=== PATIENT | female | born 1960 | race Caucasian/White ===

== ENCOUNTER 2017-05-13 16:21 | Emergency (ER) | payer BC, OTHER ==
[~2017-05-13] VITALS: Ht 157.5 cm; Wt 60.1 kg
[~2017-05-13 16:21] MED LIST: DLD2 PO; DPPI400 INJ
[2017-05-13 16:28] VITALS: TEMP 36.7; Ht 157.5 cm; Wt 60.1 kg
[2017-05-13] MEDS ORDERED: HYDROmorphone INJ 0.5 MG/0.5 ML SYR IV STA ×2 (16:41→18:55)
[2017-05-13] MEDS ORDERED: SODIUM CHLORIDE 0.9% 1000ML 1,000 ML IV STA (16:41)
[2017-05-13] MEDS ORDERED: LIDODERM (LIDOCAINE) PATCH 5% TD STA (16:41)
[2017-05-13] MEDS ORDERED: KETOROLAC TROMETHAMINE 30 MG/ML VIAL IV STA (16:41)
[2017-05-13] MEDS ORDERED: ONDANSETRON INJ 2 MG/ML 2 ML VIAL IV STA (16:43)
[2017-05-13 17:12] LABS: BASO % 0.2 %; BASO ABS # 0.03 K/uL (0-0.2); COMPLETE YES; EOS % 0.5 %; HEMATOCRIT 42.7 % (37-47); IG% 0.3 %; LYMPH % 12.1 %; LYMPH ABS # 2.05 K/uL (1.2-3.4); MEAN CELL VOLUME 91.6 fL (80-100); MEAN CORPUSCULAR HEMOGLOBIN 31.3 pg (25-34); MEAN CORPUSCULAR HGB CONC 34.2 g/dl (32-36); MEAN PLATELET VOLUME 10.5 fL (7.4-10.4); MONO % 6.9 %; PLATELET COUNT 246 K/uL (130-400); RED BLOOD COUNT 4.66 M/uL (4.2-5.4)
--- NOTE | 2017-05-13 17:12 | EMERGENCY ROOM VISIT NOTE ---
History Report prepared by Scribe: Loraine Leos Under the Supervision of: Dr. Keny Wagoner M.D. First contact with patient: 16:35 Chief Complaint: ARM PAIN Stated Complaint: LF ARM/HAND/WRIST PAIN History of Present Illness The patient is a 56 year old female who presents to the Emergency Room with complaints of persistent left arm pain for the past few days. She rates her pain as a 10/10 in severity. The pain radiates from her finger tips to her upper arm. She reports a few days ago, she woke up from a nap with the pain and it never resolved. She denies any recent injuries or trauma. She has experienced no recent fevers or illnesses. 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 A total of 10 systems reviewed and were otherwise negative. Past Medical & Surgical Surgical Problems: (1) Right shoulder pain Social History Smoking Status: Current Every Day Smoker Alcohol Use: occasionally Drug Use: none Marital Status: Housing Status: lives with family Occupation Status: employed Current/Historical Medications Scheduled Acetaminophen (Tylenol), 1,000 MG PO PRN UD Acetaminophen W/ Codeine (Tylenol W/Codeine #3), 2 TAB PO Q6 Amoxicillin & Pot Clavulanate (Augmentin 875-125 mg), 1 TAB PO BID Lidocaine (Lidoderm Patch 5%), 1 PATCH TD DIRECTED Medroxyprogesterone Acetate (Depo-Provera), 400 MG PO UD Allergies Coded Allergies: Morphine (Verified Allergy, Severe, ITCHING, 05/13/17) Adhesives (Verified Allergy, Unknown, "SENSITIVITY TO BANDAIDS", 10/11/07) Physical Exam Vital Signs Date Time Temp Pulse Resp B/P (MAP) Pulse Ox O2 Delivery O2 Flow Rate FiO2 05/13/17 19:28 75 18 128/81 100 05/13/17 18:08 73 18 134/84 96 Room Air 05/13/17 16:28 36.7 94 22 124/88 99 Room Air Physical Exam GENERAL: Patient is a healthy-appearing well-nourished 56 year old female. HEAD: Normocephalic atraumatic EYES: Ocular movements intact pupils equal and react to light OROPHARYNX mucous membranes are moist no exudates present no erythema or edema present NECK: Supple no nuchal rigidity CHEST: Good equal expansion LUNGS: Clear and equal to auscultation CARDIAC: Normal S1 and S2 ABDOMEN: Soft nontender no guarding BACK: No CVA tenderness EXTREMITIES: No pain upon palpation normal muscle strength in all groups no clubbing cyanosis or edema NEURO: Patient is following commands is answering questions appropriately. Alert and oriented x3 Cranial Nerves 2-12 grossly intact Medical Decision & Procedures ER Provider Diagnostic Interpretation: Radiology results as stated below per my review and radiologist interpretation: L FOREARM 2 VIEWS ROUTINE CLINICAL HISTORY: Pt c/o left forearm pain pain COMPARISON: None. DISCUSSION: The bones and joint spaces appear intact. There is no evidence of fracture, dislocation or bony disease. There is no evidence for soft tissue swelling. IMPRESSION: Negative study. The above report was generated using voice recognition software. It may contain grammatical, syntax or spelling errors. Electronically signed by: Fox Dhillon M.D. 05/13/2017 5:17 PM L VENOUS DOPPLER UPR EXT UNIL CLINICAL HISTORY: 56 years-old Female presenting with Pt c/o LUE pain. TECHNIQUE: Real-time grayscale and color and spectral Doppler ultrasound imaging of the veins of the left upper extremity was performed. Compression and augmentation were also utilized. COMPARISON: None. FINDINGS: Left: Internal jugular vein: Patent. Subclavian vein: Patent. Cephalic vein: Patent. Axillary vein: Patent. Brachial vein: Patent. Basilic vein: Patent. Radial vein: Patent. Ulnar vein: Patent. Other: None. IMPRESSION: No evidence of deep venous thrombosis. Electronically signed by: Sanju Mitchell M.D. 05/13/2017 6:08 PM Laboratory Results 05/13/17 16:50 Red Blood Count 4.66, Mean Corpuscular Volume 91.6, Mean Corpuscular Hemoglobin 31.3, Mean Corpuscular Hemoglobin Concent 34.2, Mean Platelet Volume 10.5, Neutrophils (%) (Auto) 80.0, Lymphocytes (%) (Auto) 12.1, Monocytes (%) (Auto) 6.9, Eosinophils (%) (Auto) 0.5, Basophils (%) (Auto) 0.2, Neutrophils # (Auto) 13.51, Lymphocytes # (Auto) 2.05, Monocytes # (Auto) 1.17, Eosinophils # (Auto) 0.09, Basophils # (Auto) 0.03 05/13/17 16:50 Test 05/13/17 16:50 White Blood Count 16.90 K/uL (4.8-10.8) Red Blood Count 4.66 M/uL (4.2-5.4) Hemoglobin 14.6 g/dL (12.0-16.0) Hematocrit 42.7 % (37-47) Mean Corpuscular Volume 91.6 fL (80-100) Mean Corpuscular Hemoglobin 31.3 pg (25-34) Mean Corpuscular Hemoglobin Concent 34.2 g/dl (32-36) Platelet Count 246 K/uL (130-400) Mean Platelet Volume 10.5 fL (7.4-10.4) Neutrophils (%) (Auto) 80.0 % Lymphocytes (%) (Auto) 12.1 % Monocytes (%) (Auto) 6.9 % Eosinophils (%) (Auto) 0.5 % Basophils (%) (Auto) 0.2 % Neutrophils # (Auto) 13.51 K/uL (1.4-6.5) Lymphocytes # (Auto) 2.05 K/uL (1.2-3.4) Monocytes # (Auto) 1.17 K/uL (0.11-0.59) Eosinophils # (Auto) 0.09 K/uL (0-0.5) Basophils # (Auto) 0.03 K/uL (0-0.2) RDW Standard Deviation 42.1 fL (36.4-46.3) RDW Coefficient of Variation 12.5 % (11.5-14.5) Immature Granulocyte % (Auto) 0.3 % Immature Granulocyte # (Auto) 0.05 K/uL (0.00-0.02) Erythrocyte Sedimentation Rate 12 mm/hr (0-21) Anion Gap 6.0 mmol/L (3-11) Est Creatinine Clear Calc Drug Dose 73.7 ml/min Estimated GFR () 114.4 Estimated GFR (Non- 98.7 BUN/Creatinine Ratio 19.4 (10-20) Uric Acid 3.5 mg/dl (2.6-7.2) Calcium Level 9.4 mg/dl (8.5-10.1) Total Bilirubin 0.4 mg/dl (0.2-1) Direct Bilirubin < 0.1 mg/dl (0-0.2) Aspartate Amino Transf (AST/SGOT) 13 U/L (15-37) Alanine Aminotransferase (ALT/SGPT) 21 U/L (12-78) Alkaline Phosphatase 72 U/L (45-117) C-Reactive Protein < 0.29 mg/dl (0-0.29) Total Protein 7.6 gm/dl (6.4-8.2) Albumin 4.1 gm/dl (3.4-5.0) Thyroid Stimulating Hormone (TSH) 1.700 uIu/ml (0.300-4.500) Lyme Disease IgG Antibody NEG (NEG) Anti-Streptolysin O Antibody Screen NEG IU/ml (<200 IU) Labs reviewed by ED physician. Medications Administered Medications (Trade) Dose Ordered Sig/Jose Route Start Time Stop Time Status Last Admin Dose Admin Sodium Chloride 1,000 ml @ 999 mls/hr Q1H1M STAT IV 05/13/17 16:41 05/13/17 17:41 DC 05/13/17 16:41 999 MLS/HR Ketorolac Tromethamine (Toradol Inj) 30 mg NOW STAT IV 05/13/17 16:41 05/13/17 16:44 DC 05/13/17 16:59 30 MG Lidocaine (Lidoderm Patch 5%) 1 patch NOW STAT TD 05/13/17 16:41 05/13/17 16:44 DC 05/13/17 17:04 1 PATCH Hydromorphone HCl (Dilaudid Inj) 0.5 mg NOW STAT IV 05/13/17 16:41 05/13/17 16:44 DC 05/13/17 17:00 0.5 MG Ondansetron HCl (Zofran Inj) 4 mg NOW STAT IV 05/13/17 16:43 05/13/17 16:46 DC 05/13/17 16:59 4 MG Hydromorphone HCl (Dilaudid Inj) 0.5 mg NOW STAT IV 05/13/17 18:55 05/13/17 18:57 DC 05/13/17 18:55 0.5 MG Amoxicillin/ Clavulanate Potassium (Augmentin Tab) 875 mg ONE ONCE PO 05/13/17 19:00 05/13/17 19:01 DC 05/13/17 19:12 875 MG Acetaminophen/ Codeine Phosphate (TYLENOL W/ CODEINE #3 Home Pack) 1 homepack UD STAT PO 05/13/17 19:06 05/13/17 19:07 DC 05/13/17 19:14 1 HOMEPACK ECG Indication: other (arm pain ) Rate (beats per minute): 85 Rhythm: normal sinus Findings: no acute ischemic change, no ectopy ED Course 1635: Past medical records reviewed. The patient was evaluated in room B7. A complete history and physical examination was performed. 1641: Dilaudid 0.5 mg IV, Lidocaine 1 patch TD, Toradol 30 mg IV, NSS 1000 ml @ 999 mls/hr IV. 164: Zofran 4 mg IV. 1855: Dilaudid 0.5 mg IV. 190: Percocet 5/325 mg 1 homepack PO, Augmentin 875 mg PO. 1905: Acetaminophen/Codeine Phosphate, 1 homepack PO. 1909: I reevaluated the patient. She is feeling much better. I discussed her results and discharge instructions and she verbalized complete understanding and agreement. Medical Decision This is a 56-year-old female who presents emergency department complaining of left arm pain. The patient also has a dopplerable pulses. She has no evidence of cellulitis or vascular compromise on physical examination. She also has no evidence of joint infection at the wrist or the elbow. On reexamination I do feel that the patient may be suffering from carpal tunnel disease however she does have an elevation in her white blood count cell count. I will place the patient in a splint and will start her on Augmentin and she does have an elevation in her white blood count cell count and does have a positive Lyme. The line will be reread over the next 48 hours. I stressed the need follow-up with orthopedics to the patient. She'll be placed on Tylenol 3 at home. An IV was established, the patient is given normal saline bolus, Toradol, Dilaudid 2. Repeat examination revealed much improvement the patient's symptoms. Patient was in agreement with the treatment plan. Medication Reconcilliation Current Medication List: was personally reviewed by me Blood Pressure Screening Patient's blood pressure: Normal blood pressure Blood pressure disposition: Did not require urgent referral Impression Primary Impression: Left wrist pain Scribe Attestation The scribe's documentation has been prepared under my direction and personally reviewed by me in its entirety. I confirm that the note above accurately reflects all work, treatment, procedures, and medical decision making performed by me. Departure Information Dispostion Home / Self-Care Prescriptions Lidocaine (Lidoderm Patch 5%) 1 Ea Tdsy 1 PATCH TD DIRECTED, #30 PATCH Prov: Keny Wagoner MD 05/13/17 Amoxicillin & Pot Clavulanate (Augmentin 875-125 mg) 1 Tab Tab 1 TAB PO BID, #14 TAB Prov: Keny Wagoner MD 05/13/17 Acetaminophen W/ Codeine (TYLENOL W/CODEINE #3) 1 Tab Tab 2 TAB PO Q6, #14 TAB Prov: Keny Wagoner MD 05/13/17 Referrals No Doctor, Assigned (PCP) Patient Instructions Carpal Tunnel Syndrome, De Quervain Tenosynovitis, [facility] Additional Instructions Follow up with Dr Hernandez's office You received narcotic or benzodiazepene medication while in the emergency room today. This is an addictive medication that may cause drowziness as well as constipation. Do not drive, operate heavy machinery, or drink alcohol under the influence of this medication. Take 600 mg Ibuprofen every 6 hours Take Tylenol#3 for breakthrough pain You have been examined and treated today on an emergency basis only. This is not a substitute for, or an effort to provide, complete comprehensive medical care. It is impossible to recognize and treat all injuries or illnesses in a single emergency department visit. It is therefore important that you follow up closely with your PCP. Call as soon as possible for an appointment. Thank you for your time and consideration. I look forward to speaking with you again soon. Please don't hesitate to call us if you have any questions.
--- NOTE | 2017-05-13 17:19 | DIAGNOSTIC IMAGING REPORT ---
L FOREARM 2 VIEWS ROUTINE CLINICAL HISTORY: Pt c/o left forearm pain pain COMPARISON: None. DISCUSSION: The bones and joint spaces appear intact. There is no evidence of fracture, dislocation or bony disease. There is no evidence for soft tissue swelling. IMPRESSION: Negative study. The above report was generated using voice recognition software. It may contain grammatical, syntax or spelling errors. Electronically signed by: Fox Dhillon M.D. 05/13/2017 5:17 PM Dictated Date/Time: 05/13/2017 5:17 PM
[2017-05-13 17:31] LABS: ALT/SGPT 21 U/L (12-78); AST/SGOT 13 U/L (15-37); BLOOD UREA NITROGEN 13 mg/dl (7-18); BUN/CREATININE RATIO 19.4 (10-20); CALCIUM 9.4 mg/dl (8.5-10.1); CARBON DIOXIDE 24 mmol/L (21-32); CHLORIDE 107 mmol/L (98-107); CREATININE 0.69 mg/dl (0.60-1.20); GLUCOSE 89 mg/dl (70-99); SODIUM 137 mmol/L (136-145); URIC ACID 3.5 mg/dl (2.6-7.2)
[2017-05-13 17:41] LABS: ALKALINE PHOSPHATASE 72 U/L (45-117); C-REACTIVE PROTEIN < 0.29 mg/dl (0-0.29)
--- NOTE | 2017-05-13 18:10 | DIAGNOSTIC IMAGING REPORT ---
L VENOUS DOPPLER UPR EXT UNIL CLINICAL HISTORY: 56 years-old Female presenting with Pt c/o LUE pain. TECHNIQUE: Real-time grayscale and color and spectral Doppler ultrasound imaging of the veins of the left upper extremity was performed. Compression and augmentation were also utilized. COMPARISON: None. FINDINGS: Left: Internal jugular vein: Patent. Subclavian vein: Patent. Cephalic vein: Patent. Axillary vein: Patent. Brachial vein: Patent. Basilic vein: Patent. Radial vein: Patent. Ulnar vein: Patent. Other: None. IMPRESSION: No evidence of deep venous thrombosis. Electronically signed by: Sanju Mitchell M.D. 05/13/2017 6:08 PM Dictated Date/Time: 05/13/2017 5:53 PM
[2017-05-13] MEDS ORDERED: ACET-1256 PO (18:53)
[2017-05-13] MEDS ORDERED: DPPRI400 PO (18:53)
[2017-05-13] MEDS ORDERED: PERCOCET HOME PACK PO ONE (19:00)
[2017-05-13] MEDS ORDERED: AMOXICILLIN/CLAVULANATE TAB 875 MG TAB PO ONE (19:00)
[2017-05-13] MEDS ORDERED: TYLENOL #3 HOME PACK PO STA (19:06)
[2017-05-13] MEDS ORDERED: ACET300T2 PO (19:07)
[2017-05-13] MEDS ORDERED: AMOX875T PO (19:10)
[2017-05-13 19:16] LABS: LYME DISEASE AB IGG NEG (NEG)
[2017-05-13] MEDS ORDERED: NF656 TD (19:16)
[2017-05-13 19:18] LABS: ANTI-STREP O SCR: 5YRS OR > NEG IU/ml (<200 IU)
[2017-05-13 19:25] LABS: LYME DISEASE AB IGM POS (NEG)
[2017-05-13 19:28] VITALS: BP 128/81; PULSE 75; O2SAT 100
[2017-05-19 10:16] LABS: 18KDIGG BAND NONREACTIVE (NONREACTIVE); 23KDIGG BAND REACTIVE (NONREACTIVE); 23KDIGM BAND REACTIVE (NONREACTIVE); 28KDIGG BAND NONREACTIVE (NONREACTIVE); 30KDIGG BAND NONREACTIVE (NONREACTIVE); 39KDIGG BAND NONREACTIVE (NONREACTIVE); 39KDIGM BAND NONREACTIVE (NONREACTIVE); 41KDIGG BAND REACTIVE (NONREACTIVE); 41KDIGM BAND REACTIVE (NONREACTIVE); 45KDIGG BAND NONREACTIVE (NONREACTIVE); 58KDIGG BAND NONREACTIVE (NONREACTIVE); 66KDIGG BAND NONREACTIVE (NONREACTIVE); 93KDIGG BAND NONREACTIVE (NONREACTIVE)
== END 2017-05-13 19:30 | disposition home or self-care (01) ==
LOC: C.EDB 16:22
DX: M25.532 Pain in left wrist (principal); F17.200 Nicotine dependence, unspecified, uncomplicated

== ENCOUNTER 2024-06-17 12:02 | Observation (INO) ==
--- OUTSIDE RECORDS SUMMARY | 2024-06-17 12:09 | External Medical Summary | Summary of Care ---
Author Name Unknown Organization [facility] Address [address] [address] Phone [phone] Care Team Providers Care Steamboat Inspector Name Role Phone Bonnie Fuller PA-C Primary Care Provider Reason for Visit * Reason Onset Date Comments Letter Requests 01/11/2024 Appointment 01/11/2024 Encounter Details Date Type Department Care Team (Late st Contact Info) Description 01/11/2024 Telephone Rheumatology [id number] [place] [address] Geoff Machado MD [address] [place] [address] Letter Requests (/); Appointment Allergies Active Allergy Reactions Criticality Noted Date Comments Adhesive Tape 07/14/2011 Rash Morphine Sulfate Itching 04/09/2010 Sulfasalazine Other (Please comment) Medium 08/05/2020 Trouble breathing documented as of this encounter (statuses as of 01/11/2024) Medications Medication Sig Dispensed Refills Start Date End Date Status Hydroxychloroquine Sulfate 200 MG Oral Tablet (Plaquenil) TAKE 1 AND 1/2 TABLETS BY MOUTH ONCE DAILY AT BEDTIME 135 Tablet 3 10/27/2023 Active Naproxen 500 MG Oral Tablet (Naprosyn)Indicatio ns:Chronic left shoulder pain Take 1 Tablet by mouth 2 times a day as needed for Pain. With food 40 Tablet 1 12/19/2023 Active methylPREDNISolone 4 MG Oral Tablet Therapy Pack (Medrol Dosepack) follow package directions 21 Tablet 01/11/2024 Active documented as of this encounter (statuses as of 01/11/2024) Active Problems Problem Noted Date Diagnosed Date Pulmonary emphysema 08/24/2022 Atherosclerosis of [place] ronary artery of [place] heart without angina pectoris 05/06/2022 Gastroesophageal reflux disease 07/08/2021 Wears dentures 10/23/2020 Encounter for therapeutic drug monitoring 2019 Rheumatoid arthritis involvi ng multiple sites with positive rheumatoid factor 12/19/2019 Tobacco use disorder 10/16/2012 Diaphragmatic hernia 04/30/2010 documented as of this encounter (statuses as of 01/11/2024) Resolved Problems Problem Noted Date Diagnosed Date Resolved Date Pulmonary emphysema 08/24/2022 12/19/19 24 documented as of this encounter (statuses as of 01/11/2024) Immunizations Name Administration Dates Next Due COVID-19 mRNA, LNP-s, No Pre serve, 2-Dose Series ([employer]) 06/15/2021,09/16/2020,08/26/2020 Pneumococcal Polysaccharide PPV23 (Pneumovax) 07/08/2021 Seasonal Influenza, PF, 6 M & above, IM , (FluLaval or Fluzone) 05/27/2022,05/25/2021,05/22/2019 Seasonal Influenza, Quad, Na yancy (Flumist) 05/22/2018,06/10/2016 Seasonal Influenza, Quadrivalent, ID 05/26/2020 Seasonal Influenza, Quadriva lent,with Preserve, 3 yr & above, IM 06/01/2017 Seasonal Influenza, Split, I IV3, With Preserve, Inj 06/05/2015,06/05/2014,06/06/2013,06/22,05/14/2011 TDAP (age 10 and older)(Boostrix) 10/12/2014 TDAP (age 11 and older)(Adacel) 04/10/2014(Defer red: Patient Refused) documented as of this encounter Social History Tobacco Use Types Packs/Day Years Used Date Smoking Tobacco: Every Day Cigarettes 1 30 Smokeless Tobacco: Never Alcohol Use Standard Drinks/Week Comments Yes 0 (1 standard drink = 0.6 oz pur e alcohol) rare PHQ-2 Answer Date Recorded PHQ Adult Total Score 17 05/06/2022 Sex and Gender Information Value Date Recorded Sex Assigned at Female 10/23/2020 7:22 AM EST Gender Identity Female 10/23/2020 7:22 AM EST Sexual Orientation Straight 10/23/2020 7: 22 AM EST Job Start Date Occupation Industry Not on file Not on file Not on file documented as of this encounter Miscellaneous Notes * Telephone Encounter - Geoff Machado MD - 01/11/2024 4:32 PM EDT I called and left a message to call back. When patient calls back let her know I sent in a steroid Dosepak for her to take for her flare of her RA * Telephone Encounter - Janina Sheth OSA - 01/11/2024 9:14 AM EDT Nash - Patient Related Communication Reason for Call: appt Flare, new symptom, acute problem (Physician-[facility], Nurse Pool-[facility]): swollen right hand/thumb w/limited movement LUNA Bass Nash - Patient Related Communication Reason for Call: letter request Pt requesting a general letter stating that she has Rheumatoid Arthritis and currently under the care of Dr Moseley. Pt requesting letter be sent to home address. LUNA Bass documented in this encounter Plan of Treatment Health Maintenance Due Date Last Done Comments DISCUSS TOBACCO CESSATION (REFER TO SMARTSET #6456) 1962 Alpha-1 Antitrypsin 1980 O2 ASSESSMENT COMPLETED IN PAST YEAR FOR COPD 1980 Zoster Vaccines (1 of 2) 1981 HPV/Co-Test 1992 Colonoscopy 2007 Sigmoidoscopy 2007 Mammogram 11/06/2014 11/06/2013, 11/2013, 04/21/2012 Fecal Occult Blood Test 04/10/2015 04/10/2014, 04/30 Cervical Cancer Screening 04/10/2017 Pap Smear 04/10/2017 04/10/2014, 04/10/2014 Cologuard 11/20/2021 11/20/2018 Colorectal Cancer Screening 11/20/2021 Depression, Most Recent Score >= 10 (will fire each visit until score < 10) 05/07/2022 05/06/2022 Pneumococcal Vaccine: Pediatrics (0 to 5 Years) and At-Risk Patients (6 to 64 Years) (2 of 2 - PCV) 07/08/2022 07/08/2021 *COPD SEVERITY VERIFIED BY PFT 08/26/2022 COVID-19 Vaccine ( season) 2023 06/15/2021, 09/16/2020, 08/26/2020 Influenza Vaccine (FLU shot) (Season Ended) 2024 05/27/2022, 05/25/2021, 05/26/2020, Additional history exists DTaP,Tdap,and Td Vaccines (2 - Td or Tdap) 10/12/2024 10/12/2014 Lung Cancer Screening Completed 05/02/2022 GARDASIL-HPV IMMUNIZATION SERIES Aged Out No longer eligible based on patient's age to complete this topic MENINGOCOCCAL (MENACTRA/MENVEO) Aged Out No longer eligible based on patient's age to complete this topic documented as of this encounter Medical Devices Implanted Type Area Custodial Supervisor Device Identifier Shelf Expiration Date Model / Serial / Lot Lens Intraoc 21.0 - [id number] - [id number] Implanted:Qty: 1 on 11/04/2020 by Kael Greene MD at OR [facility] Left: Eye [employer]USCH [employer] LOMB 06/21/2025 [id number] / [id number] / Capsular Tension Ring Implanted:Qty: 1 on 11/04/2020 by Kael Greene MD at OR [facility] Left: Eye TYPE 14 / [id number] / BHHCEN Lens Intraoc 21.5 - [id number] - [id number] Implanted:Qty: 1 on 11/18/2020 by Kael Greene MD at OR [facility] Right: Eye BA[employer]CH [employer] LOMB 05/21/2025 [id number] / [id number] / [id number] documented as of this encounter Care Teams Steamboat Inspector Relationship Specialty Start Date End Date Bonnie Fuller PA-C [address] [place] [id number] PCP - General Physician Civil Process Server 06/20/18 documented as of this encounter
--- OUTSIDE RECORDS SUMMARY | 2024-06-17 12:09 | External Medical Summary | Summary of Care ---
Author Name Unknown Organization [facility] Address [address] [address] [facility] [facility] [address] Phone [phone] Care Team Providers Care Electronics Hardware Design Engineer Name Role Phone Bonnie Fuller PA-C Primary Care Provider Reason for Visit * Reason Onset Date Comments Letter Requests 01/11/2024 Appointment 01/11/2024 Encounter Details Date Type Department Care Team (Late st Contact Info) Description 01/11/2024 Telephone Rheumatology [id number] [place] [address] Geoff Machado MD [address] [place] [address] Letter Requests (/); Appointment Allergies Active Allergy [...] Diagnosed Date Pulmonary emphysema 08/24/2022 Atherosclerosis of [place] co ronary artery of [place] heart without angina pectoris 05/06/2022 Gastroesophageal reflux [...] mRNA, LNP-s, No Pre serve, 2-Dose Series ([employer] Me) 06/15/2021,09/16/2020,08/26/2020 Pneumococcal Polysaccharide PPV23 (Pneumovax) 07/08/2021 Seasonal [...] encounter Miscellaneous Notes * Telephone Encounter - Loni Salinas OSA - 01/11/2024 4:56 PM EDT 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 Machado. Pt is aware of message regarding medications. No further questions at this time. LUNA Murphy * Telephone Encounter - Geoff Machado MD - 01/11/2024 4:32 PM EDT I called and left a message to call back. 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 Pt requesting letter be sent to home address. LUNA Bass documented in this encounter Plan of Treatment Health Maintenance Due Date Last Done Comments DISCUSS TOBACCO CESSATION (REFER TO SMARTSET #2933) 1962 Alpha-1 Antitrypsin 1980 O2 ASSESSMENT COMPLETED [...] this encounter Medical Devices Implanted Type Area Air Brush Artist Device Identifier Shelf Expiration Date Model / Serial / Lot Lens Intraoc 21.0 - [id number] - [id number] Implanted:Qty: 1 on 11/04/2020 by Kael Greene MD at OR [facility] Left: Eye BA[employer]CH [employer] LOMB 06/21/2025 [id number] / [id number] / Capsular Tension Ring Implanted:Qty: 1 on 11/04/2020 by Kael Greene MD at OR [facility] Left: Eye TYPE 14 / [id number] / BHHCEN Lens Intraoc 21.5 - [id number] - [id number] Implanted:Qty: 1 on 11/18/2020 by Kael Greene MD at OR [facility] Right: Eye BA[employer]CH [employer] LOMB 05/21/2025 [id number] / [id number] / [id number] documented as of this encounter Care Teams Electronics Hardware Design Engineer Relationship Specialty Start Date End Date Bonnie Fuller PA-C [address] [place] [address] [place] [address] PCP - General Physician Phonograph Cartridge Assembler 06/20/18 documented as of this encounter
--- OUTSIDE RECORDS SUMMARY | 2024-06-17 12:09 | External Medical Summary | Summary of Care ---
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 Farmworker Name Role Phone Bonnie Fuller PA-C Primary Care Provider Encounter Details Date Type Department Care Team (Late st Contact Info) Description 04/09/2024 Orders Only Outcomes Research Department [address] [place] [address] Marleny Pierson CHRA MyCode Research Other*[id number] Allergies Active Allergy Reactions Criticality Noted Date Comments Adhesive Tape 07/14/2011 Rash Morphine Sulfate Itching 04/09/2010 Sulfasalazine Other (Please comment) Medium 08/05/2020 Trouble breathing documented as of this encounter (statuses as of 04/09/2024) Medications Medication Sig Dispensed Refills Start Date [...] as of this encounter (statuses as of 04/09/2024) Active Problems Problem Noted Date Diagnosed Date Pulmonary emphysema 08/24/2022 Atherosclerosis of [place] co ronary artery of [place] heart without angina pectoris 05/06/2022 Gastroesophageal reflux disease 07/08/2021 Wears dentures 10/23/2020 Encounter for therapeutic drug monitoring 2019 Rheumatoid arthritis involvi ng multiple sites with positive rheumatoid factor 12/19/2019 Tobacco use disorder 10/16/2012 Diaphragmatic hernia 04/30/2010 documented as of this encounter (statuses as of 04/09/2024) Resolved Problems Problem Noted Date Diagnosed Date Resolved Date Pulmonary emphysema 08/24/2022 12/19/19 24 documented as of this encounter (statuses as of 04/09/2024) Immunizations Name Administration Dates Next Due COVID-19 mRNA, LNP-s, No Pre serve, 2-Dose Series (Pfizer) 06/15/2021,09/16/2020,08/26/2020 Pneumococcal Polysaccharide PPV23 (Pneumovax) 07/08/2021 Seasonal Influenza, PF, 6 M & above, IM , (FluLaval or Fluzone) 05/27/2022,05/25/2021,05/22/2019 Seasonal Influenza, Quad, Na yancy (Flumist) 05/22/2018,06/10/2016 Seasonal Influenza, Quadrivalent, ID 05/26/2020 Seasonal Influenza, Quadriva lent,with Preserve, 3 yr & above, IM 06/01/2017 Seasonal Influenza, Split, I IV3, With Preserve, Inj 06/05/2015,06/05/2014,06/06/2013,06/22,05/14/2011 TDAP (age 10 and older)(Boostrix) 10/12/2014 TDAP, Age 7 and older, IM (Adacel) 04/10/2014([place]: Patient Refused) documented as of this encounter [...] on file documented as of this encounter Plan of Treatment Scheduled Orders Name Type Priority Associated Diagnoses Orde r Schedule MYCODE SUBSEQUENT ADULT Lab Routine MyCode Research Other*[id number] Every 6 Months for 2 Occurrences starting 04/09/2024 until 04/29/2025 Health Maintenance Due Date Last Done Comments DISCUSS TOBACCO CESSATION (REFER TO SMARTSET #5220) 1962 Alpha-1 Antitrypsin 1980 O2 ASSESSMENT COMPLETED IN PAST YEAR FOR COPD 1980 Zoster Vaccines (1 of 2) 1981 HPV/Co-Test 1992 Colonoscopy 2007 Sigmoidoscopy 2007 Mammogram 11/06/2014 11/06/2013, 11/2013, 04/21/2012 Fecal Occult Blood Test 04/10/2015 04/10/2014, 04/30 Cervical Cancer Screening 04/10/2017 Pap Smear 04/10/2017 04/10/2014, 04/10/2014 Cologuard 11/20/2021 11/20/2018 Colorectal Cancer Screening 11/20/2021 Pneumococcal Vaccine: Pediatrics (0 to 5 Years) and At-Risk Patients (6 to 64 Years) (2 of 2 - PCV) 07/08/2022 07/08/2021 *COPD SEVERITY VERIFIED BY PFT 08/26/2022 COVID-19 Vaccine (2022- season) 2023 06/15/2021, 09/16/2020, 08/26/2020 Depression Monitoring 05/06/2023 05/06/2022 Influenza Vaccine (FLU shot) (#1) 2024 05/27/2022, 05/25/2021, 05/26/2020, Additional history exists DTaP,Tdap,and Td Vaccines (2 - Td or Tdap) 10/12/2024 10/12/2014 Lung Cancer Screening Completed 05/02/2022 HPV (Gardasil) Vaccine Aged Out No lo nger eligible based on patient's age to complete this topic MENINGOCOCCAL (MENACTRA/MENVEO) Aged Out No longer eligible based on patient's age to complete this topic documented as of this encounter Medical Devices Implanted Type Area Security Systems Specialist Device Identifier Shelf Expiration Date Model / Serial / Lot Lens Intraoc 21.0 - [id number] - [id number] Implanted:Qty: 1 on 11/04/2020 by Kael Greene MD at [facility] Left: Eye [employer]OM[employer] 06/21/2025 [id number] / [id number] / Capsular Tension Ring Implanted:Qty: 1 on 11/04/2020 by Kael Greene MD at [facility] Left: Eye TYPE 14 / [id number] / BHHCEN Lens Intraoc 21.5 - [id number] - [id number] Implanted:Qty: 1 on 11/18/2020 by Kael Greene MD at [facility] Right: Eye [employer]OM[employer] 05/21/2025 [id number] / [id number] / [id number] documented as of this encounter Visit Diagnoses Diagnosis MyCode Research Other*[id number] documented in this encounter Care Teams Hops Farmworker Relationship Specialty Start Date End Date Bonnie Fuller PA-C [address] [place] [address] [place] [phone] PCP - General Physician Software Tools Engineer 06/20/18 documented as of this encounter
--- NOTE | 2024-06-17 12:50 | Emergency Department Note ---
Impression & Plan Syncope and collapse, Acute hypotension ED Provider Note HISTORY OF PRESENT ILLNESS: Patient is a 63-year-old female presenting with a syncopal episode. Patient reports she was getting up and get around for the day when she suddenly felt very lightheaded and saw black spots in her vision and the next thing she knew she was on the ground. Denies striking her head. Denies any fevers. Denies any chest pain or shortness of breath prior to the syncopal episode. She states that she has been feeling dizzy and lightheaded for most of the morning. She states that she had an episode of syncope about a year ago but never had it worked up. She is not on any anticoagulation or antiplatelet therapies. Denies recent changes to medications. She was reportedly hypotensive for EMS (reported SBP in 50s) and was given 500 cc of fluid and route. Patient denies any recent fevers. Denies any melena or hematochezia. Denies any abdominal pain, nausea or vomiting. ROS: as above PHYSICAL EXAM: Constitutional: Patient appears in no acute distress. HENT: Head: Normocephalic and atraumatic. Eyes: EOMI, PERRL Mouth/Throat: Mucous membranes moist. Neck: Trachea midline. Neck supple. Cardiovascular: RRR, No murmurs, rubs or gallops. Intact distal pulses. Pulmonary/Chest: No respiratory distress. Breath sounds clear and equal bilaterally. No wheezes or rales. Abdominal: Abdomen soft, no tenderness, rebound or guarding. Musculoskeletal: No edema, tenderness or deformity noted. Skin: Warm and dry. No rash, erythema, pallor or cyanosis Psychiatric: Appropriate mood and affect for situation. Neurological: Alert and keenly responsive. CN II-XII grossly intact, moving all extremities equally and fully. MDM: - Vitals signs stable. - History obtained via patient. History as above. - Chronic conditions affecting care: arthritis - Differential diagnoses include, but are not limited to: PE; pneumonia; viral syndrome; CVA; intracranial hemorrhage; ACS; dehydration - Order placed for continuous cardiac monitoring. At this time, monitor showed rate of 70 bpm with normal sinus rhythm, per my interpretation. - External medical records reviewed. - EKG interpreted by myself showed normal sinus rhythm. Rate 75 bpm. QT 408. No acute ischemic changes - Laboratory workup interpreted by myself showed normal WBC; normal PT/INR; normal lactate; stable electrolytes; normal TSH; normal lipase; normal troponin; normal magnesium - CXR negative for pneumonia, per my interpretation - CT head wo contrast negative for acute pathology - CT PE negative for PE or dissection. Do not have any millimeter groundglass opacity in the left upper lobe. Also noted to have 3.7 cm multiloculated cystic lesion within the pancreatic body. - UA showed bacteria but no WBCs. No symptoms of UTI, so no antibiotics administered. - Patient's orthostatics stable, but she did have slight hypotension again after being laid back into the bed. Her story is concerning and she has not had formal cardiac workup in the past. Will admit to hospitalist service for further evaluation for patient's syncope. - Discussion was had with machine adjuster leader case trim about patient's case and need for admission - Hospitalist consulted for admission - Patient admitted to [facility] hospitalist service for further evaluation and management. ASSESSMENT AND PLAN: Diagnosis: syncope and collapse; acute hypotension Plan: admit Past Med/Surg History Problem List (Updated 06/17/24 @ 15:35 by Cindi Felix MD) Acute hypotension (Acute) Syncope and collapse (Acute) Medical History (Updated 06/17/24 @ 15:35 by Cindi Felix MD) Arthritis Surgical History No pertinent past surgical history Family History Other Family history non-contributory Social History Smoking Status: Never smoker Hx Substance Use: No Preferred Language: Macedonian Feels Safe at Home: Yes Allergies Allergies Allergy/AdvReac Type Severity Reaction Status Date / Time morphine Allergy Severe Itching Verified 01/02/21 21:00 oxycodone [From Percocet] AdvReac Intermediate Nausea/Vomi Verified 01/02/21 21:00 ting adhesive AdvReac Mild Skin Verified 01/02/21 21:00 irritation Home Meds Home Medications Medication Instructions Recorded Confirmed hydroxychloroquine 200 mg tablet 300 mg PO HS 01/02/21 06/17/24 (Plaquenil) acetaminophen 500 mg tablet 500 mg PO DIRECTED PRN Pain 06/17/24 06/17/24 Results & Data (ED) Vital Signs Vital Signs - 24 hr 06/17/24 12:09 06/17/24 12:15 06/17/24 12:42 Temperature 36.8 C Temperature Source Temporal Artery Scan Pulse Rate - Lying Pulse Rate - Sitting Pulse Rate - Standing Pulse Rate 77 73 Pulse Rate [Apical] 83 Pulse Rate from SpO2 Sensor Pulse Rhythm Regular Pulse Strength Normal Respiratory Rate 18 20 Respiratory Effort / Characteristics Non-Labored Non-Labored Respiratory Depth Normal Normal Blood Pressure - Lying Blood Pressure - Sitting Blood Pressure- Standing Blood Pressure 113/61 Blood Pressure [Right Arm] 113/61 Blood Pressure Mean 78 Blood Pressure Mean [Right Arm] 78 Pulse Oximetry 97 98 Oxygen Delivery Method Room Air Room Air Sepsis Recent Fever Within 48 Hours No Sepsis New/Unexplained Change in Mental Status N/A Sepsis Action Taken by Nursing No Action Required 06/17/24 12:42 06/17/24 12:47 06/17/24 13:03 Temperature Temperature Source Pulse Rate - Lying 72 Pulse Rate - Sitting 73 Pulse Rate - Standing 74 Pulse Rate 75 Pulse Rate [Apical] Pulse Rate from SpO2 Sensor 76 Pulse Rhythm Pulse Strength Respiratory Rate 17 Respiratory Effort / Characteristics Respiratory Depth Blood Pressure - Lying 103/58 L Blood Pressure - Sitting 102/60 Blood Pressure- Standing 102/58 L Blood Pressure Blood Pressure [Right Arm] Blood Pressure Mean Blood Pressure Mean [Right Arm] Pulse Oximetry 98 99 Oxygen Delivery Method Room Air Sepsis Recent Fever Within 48 Hours Sepsis New/Unexplained Change in Mental Status Sepsis Action Taken by Nursing 06/17/24 14:03 06/17/24 14:03 06/17/24 14:03 Temperature Temperature Source Pulse Rate - Lying Pulse Rate - Sitting Pulse Rate - Standing Pulse Rate 70 73 Pulse Rate [Apical] Pulse Rate from SpO2 Sensor 69 Pulse Rhythm Pulse Strength Respiratory Rate 16 20 Respiratory Effort / Characteristics Respiratory Depth Blood Pressure - Lying Blood Pressure - Sitting Blood Pressure- Standing Blood Pressure 94/59 L 94/59 L Blood Pressure [Right Arm] Blood Pressure Mean 65 65 Blood Pressure Mean [Right Arm] Pulse Oximetry 97 96 Oxygen Delivery Method Room Air Sepsis Recent Fever Within 48 Hours Sepsis New/Unexplained Change in Mental Status Sepsis Action Taken by Nursing 06/17/24 15:30 06/17/24 15:50 Temperature Temperature Source Pulse Rate - Lying Pulse Rate - Sitting Pulse Rate - Standing Pulse Rate 70 Pulse Rate [Apical] 73 Pulse Rate from SpO2 Sensor 70 Pulse Rhythm Pulse Strength Respiratory Rate 24 16 Respiratory Effort / Characteristics Respiratory Depth Blood Pressure - Lying Blood Pressure - Sitting Blood Pressure- Standing Blood Pressure Blood Pressure [Right Arm] 99/54 L Blood Pressure Mean Blood Pressure Mean [Right Arm] 69 Pulse Oximetry 94 95 Oxygen Delivery Method Sepsis Recent Fever Within 48 Hours Sepsis New/Unexplained Change in Mental Status Sepsis Action Taken by Nursing Laboratory Data 06/17/24 12:38 06/17/24 12:38 Lab Results 06/17/24 06/17/24 06/17/24 Range/Units 12:38 14:21 14:33 WBC 10.25 (4.8-10.8) K/ul RBC 4.34 (4.20-5.40) M/uL Hgb 13.3 (12.0-16.0) g/dl Hct 40.5 (37.0-47.0) % MCV 93.3 (80.0-100.0) fL MCH 30.6 (25.0-34.0) pg MCHC 32.8 (32.0-36.0) g/dL RDW Std Deviation 42.4 (36.4-46.3) fL RDW Coeff of Kevin 12.3 (11.5-14.5) % Plt Count 218 (130-400) K/uL MPV 11.8 (9.4-12.4) fL Immature Gran % (Auto) 0.5 % Neut % (Auto) 78.9 % Lymph % (Auto) 13.0 % [place] % (Auto) 6.2 % Eos % (Auto) 0.8 % Baso % (Auto) 0.6 % Neut # (Auto) 8.09 H (1.40-6.50) K/uL Lymph # (Auto) 1.33 (1.20-3.40) K/uL [place] # (Auto) 0.64 H (0.11-0.59) K/uL Eos # (Auto) 0.08 (0.00-0.50) K/uL Baso # (Auto) 0.06 (0.00-0.20) K/uL Immature Gran # (Auto) 0.05 (0.01-0.20) K/uL PT 10.5 (9.0-12.0) Seconds INR 1.0 (0.9-1.1) Sodium 138 (136-145) mmol/L Potassium 4.9 (3.5-5.1) mmol/L Chloride 103 (98-107) mmol/L Carbon Dioxide 32 (21-32) mmol/L Anion Gap 3 (3-11) BUN 13 (6-23) mg/dl Creatinine 0.64 (0.6-1.2) mg/dl Est Cr Clr Drug Dosing 73.0 ml/min eGFR 100.48 BUN/Creatinine Ratio 20.3 H (10-20) Glucose 111 H (70-99(Fasting)) mg/dl Lactate 1.4 (0.4-2.0) mmol/L Calcium 9.1 (8.6-10.3) mg/dl Magnesium 1.8 (1.7-2.4) mg/dl Total Bilirubin 0.4 (0.2-1.0) mg/dl AST 14 (13-39) U/L ALT 14 (7-52) U/L Alkaline Phosphatase 82 (34-104) U/L Troponin I High Sens < 2.3 (0-14) pg/ml Total Protein 6.7 (6.0-8.3) gm/dl Albumin 3.9 (3.4-5.0) gm/dl Globulin 2.8 (2.5-4.0) gm/dl Albumin/Globulin Ratio 1.4 (0.9-2) Lipase 15 (11-82) U/L TSH 0.664 (0.300-4.500) uIu/ml Urine Color Yellow Urine Appearance Clear (Clear) Urine pH 7.5 (4.5-7.5) Ur Specific [place] 1.013 (1.000-1.030) Urine Protein Negative (Negative) Urine Glucose (UA) Negative (Negative) Urine Ketones Negative (Negative) Urine Blood Negative (Negative) Urine Nitrite Negative (Negative) Urine Bilirubin Negative (Negative) Urine Urobilinogen Negative (Negative) Ur Leukocyte Esterase Trace H (Negative) Urine WBC (Auto) 0-5 (0-5) /hpf Urine RBC (Auto) 0-2 (0-2) /hpf U Hyaline Cast (Auto) 0-2 (0-2) /lpf U Epithel Cells (Auto) 3-5 H (0-2) /hpf Urine Bacteria (Auto) 3+ H (None Seen) Administered Medications Discontinued Medications Ioversol (Optiray 320 125ml) 116 ml IV ONCE ONE Stop: 06/17/24 14:44 Last Admin: 06/17/24 14:43 Dose: 116 ml Documented By: EDK Imaging Data Radiologist's Impression: Chest X-Ray 06/17/24 14:14 XR chest 1V portable CLINICAL HISTORY: near syncope COMPARISON STUDY: Chest CT performed earlier today. Chest CT June 18, 2018. FINDINGS: Anterior cervical spine fusion is incidentally noted. Lung volumes are normal. Lungs are clear. There is no pneumothorax or pleural effusion. Cardiac size is normal. Mediastinal contours are normal. There is no evidence for pulmonary edema. IMPRESSION: No acute cardiopulmonary findings. ACT 112: Negative or not required by law. Electronically signed by: Collins Mi M.D. 06/17/2024 3:[address] 06/17/24 14:14 CT OF THE HEAD WITHOUT CONTRAST CLINICAL HISTORY: syncopal episode COMPARISON STUDY: No previous studies for comparison. TECHNIQUE: Helical axial images of the head were obtained without IV contrast. Automated exposure control was utilized for the study. A dose lowering technique was utilized adhering to the principles of ALARA. FINDINGS: No acute intracranial hemorrhage, midline shift or mass effect is present. Scattered subcortical white matter hypodense foci are present. The ventricular system is unremarkable. The basal cisterns are patent. No extra- axial collections are present. There are no findings to suggest acute dural sinus thrombosis or acute territorial infarct. No significant calvarial abnormalities are present. Visualized portions of the sinuses and mastoid air cells are clear. IMPRESSION: 1. No acute intracranial findings. 2. No calvarial fractures. 3. Scattered subcortical white matter hypodense foci. Although nonspecific, these statistically reflect small vessel disease. ACT 112: Negative or not required by law. Electronically signed by: Collins Mi M.D. 06/17/2024 2:47 PM Chest CTA 06/17/24 14:15 CT ANGIOGRAPHY OF THE CHEST, PULMONARY EMBOLUS PROTOCOL CLINICAL HISTORY: Syncope; hypotension. Evaluate for pulmonary embolus. COMPARISON STUDY: Chest CT June 18, 2018. TECHNIQUE: Following IV administration of 115 mL of Optiray, helical axial images of the chest were obtained utilizing the pulmonary embolus protocol. Maximal intensity projections and sagittal and coronal reformats were viewed on an independent 3D workstation. IV contrast was administered without complication. Automated exposure control was utilized for the study. A dose lowering technique was utilized adhering to the principles of ALARA. CT DOSE: 865.76 mGy.cm FINDINGS: No pulmonary emboli are identified. There is no thoracic aortic dissection. Size of the heart is normal. There is no pericardial effusion. No enlarged axillary, mediastinal or hilar lymph nodes are present. There is no pneumothorax or pleural effusion. Mild emphysema is present. An 8 mm ground glass opacity within the left upper lobe on image 115 of [address] of June 10, 2018. There are no acute fractures within the bony thorax. A multiloculated cystic lesion within the pancreatic body is partially imaged on this exam. This contains central calcification measures 3.7 cm in maximal dimension. This has mildly increased in size since CT of June 18, 2018. IMPRESSION: 1. No pulmonary emboli identified. 2. No acute intrathoracic findings. 3. 8 mm groundglass opacity within the left upper lobe. This may reflect a mild infectious or inflammatory process. However, a chest CT in 3 months to exclude the possibility of a small pulmonary lesion is recommended. 4. Emphysema. 5. Indeterminate 3.7 cm multiloculated cystic lesion within the pancreatic body, mildly increased in size since CT of June 18, 2018. If not already evaluated, nonemergent pancreatic protocol MRI is recommended. ACT 112: Positive. There are findings on this exam that require communication between the performing entity and the patient following Patient Test Result Information Act [place] Act 112) guidelines. Electronically signed by: Collins Mi M.D. 06/17/2024 2:59 PM Discharge Plan Visit Data Chief Complaint: Vertigo Stated Complaint: FALL, HYPOTENSION ED Provider: Cindi Felix Discharge Problem: Syncope and collapse, Acute hypotension Forms Stand Alone Forms: My [facility] Prescriptions Prescriptions: No Action hydroxychloroquine [Plaquenil] 200 mg tablet 300 mg PO HS Rx Instructions: 1.5 tabs hs acetaminophen [Tylenol Ex Str Arthritis Pain] 500 mg Tablet 500 mg PO DIRECTED PRN (Reason: Pain) Referrals Referrals: Bonnie Fuller PA-C [Primary Care Provider] -
[2024-06-17 13:24] LABS: Basophils # (auto) 0.06 K/uL (0.00-0.20); Basophils % (auto) 0.6 %; Eosinophils # (auto) 0.08 K/uL (0.00-0.50); Eosinophils % (auto) 0.8 %; Hematocrit (blood only) 40.5 % (37.0-47.0); Hemoglobin 13.3 g/dl (12.0-16.0); Immature Granulocytes # (auto) 0.05 K/uL (0.01-0.20); Immature Granulocytes % (auto) 0.5 %; Lymphocytes # (auto) 1.33 K/uL (1.20-3.40); Mean Corpuscular Hemoglobin 30.6 pg (25.0-34.0); Mean Corpuscular Hgb Conc 32.8 g/dL (32.0-36.0); Mean Corpuscular Volume 93.3 fL (80.0-100.0); Mean Platelet Volume 11.8 fL (9.4-12.4); Monocytes # (auto) 0.64 K/uL (0.11-0.59); Monocytes % (auto) 6.2 %; Neutrophils # (auto) 8.09 K/uL (1.40-6.50); Neutrophils % (auto) 78.9 %; Platelet Count 218 K/uL (130-400); RDW Coefficient of Variation 12.3 % (11.5-14.5); RDW Standard Deviation 42.4 fL (36.4-46.3); Red Blood Count 4.34 M/uL (4.20-5.40); White Blood Count 10.25 K/ul (4.8-10.8)
[2024-06-17 13:30] LABS: Alanine Aminotransferase 14 U/L (7-52); Albumin Globulin Ratio 1.4 (0.9-2); Albumin Level 3.9 gm/dl (3.4-5.0); Alkaline Phosphatase 82 U/L (34-104); Anion Gap 3 (3-11); Aspartate Aminotransferase 14 U/L (13-39); BUN Creatinine Ratio 20.3 (10-20); Bilirubin,Total 0.4 mg/dl (0.2-1.0); Blood Urea Nitrogen 13 mg/dl (6-23); Calcium 9.1 mg/dl (8.6-10.3); Carbon Dioxide 32 mmol/L (21-32); Chloride 103 mmol/L (98-107); Globulin 2.8 gm/dl (2.5-4.0); Glucose 111 mg/dl (70-99(Fasting)); Lipase 15 U/L (11-82); Magnesium 1.8 mg/dl (1.7-2.4); Potassium 4.9 mmol/L (3.5-5.1); Sodium 138 mmol/L (136-145); Total Protein 6.7 gm/dl (6.0-8.3)
[2024-06-17 13:36] LABS: Troponin I High Sensitivity < 2.3 pg/ml (0-14)
[2024-06-17 13:43] LABS: Prothrombin Time 10.5 Seconds (9.0-12.0)
[2024-06-17 13:45] LABS: Thyroid Stimulating Hormone 0.664 uIu/ml (0.300-4.500)
[2024-06-17] MEDS: OPTIRAY 320 125ml IV ONE (14:43)
[2024-06-17 14:48] LABS: Appearance Urine Clear (Clear); Bacteria Urine Automated 3+ (None Seen); Bilirubin Urine Negative (Negative); Blood Urine Negative (Negative); Cast Urine Automated 0-2 /lpf (0-2); Color Urine Yellow; Glucose Urine UA Negative (Negative); Ketones Urine Negative (Negative); Leukocyte Esterase Urine Trace (Negative); Nitrite Urine Negative (Negative); Protein Urine Negative (Negative); RBC Urine Automated 0-2 /hpf (0-2); Specific Gravity Urine 1.013 (1.000-1.030); Urobilinogen Urine Negative (Negative); WBC Urine Automated 0-5 /hpf (0-5); pH Urine 7.5 (4.5-7.5)
--- NOTE | 2024-06-17 14:48 | CT Scan Report ---
CT OF THE HEAD WITHOUT CONTRAST CLINICAL HISTORY: syncopal episode COMPARISON STUDY: No previous studies for comparison. TECHNIQUE: Helical axial images of the head were obtained without IV contrast. Automated exposure con trol was utilized for the study. A dose lowering technique was utilized adhering to the principles o f ALARA. FINDINGS: No acute intracranial hemorrhage, midline shift or mass effect is present. Scattered subcor tical white matter hypodense foci are present. The ventricular system is unremarkable. The basal cist erns are patent. No extra-axial collections are present. There are no findings to suggest acute dural sinus thrombosis or acute territorial infarct. No significant calvarial abnormalities are present. V isualized portions of the sinuses and mastoid air cells are clear. IMPRESSION: 1. No acute intracranial findings. 2. No calvarial fractures. 3. Scattered subcortical white matter hypodense foci. Although nonspecific, these statistically refle ct small vessel disease. ACT 112: Negative or not required by law. Electronically signed by: Collins Mi M.D. 06/17/2024 2:47 PM
--- NOTE | 2024-06-17 15:01 | CT Scan Report ---
CT ANGIOGRAPHY OF THE CHEST, PULMONARY EMBOLUS PROTOCOL CLINICAL HISTORY: Syncope; hypotension. Evaluate for pulmonary embolus. COMPARISON STUDY: Chest CT June 18, 2018. TECHNIQUE: Following IV administration of 115 mL of Optiray, helical axial images of the chest were o btained utilizing the pulmonary embolus protocol. Maximal intensity projections and sagittal and cor onal reformats were viewed on an independent 3D workstation. IV contrast was administered without co mplication. Automated exposure control was utilized for the study. A dose lowering technique was ut ilized adhering to the principles of ALARA. CT DOSE: 865.76 mGy.cm FINDINGS: No pulmonary emboli are identified. There is no thoracic aortic dissection. Size of the he art is normal. There is no pericardial effusion. No enlarged axillary, mediastinal or hilar lymph nod es are present. There is no pneumothorax or pleural effusion. Mild emphysema is present. An 8 mm grou nd glass opacity within the left upper lobe on image 115 of [address] of June 10, 2018. There are no acute fractures within the bony thorax. A multiloculated cystic lesion within the pancre atic body is partially imaged on this exam. This contains central calcification measures 3.7 cm in ma ximal dimension. This has mildly increased in size since CT of June 18, 2018. IMPRESSION: 1. No pulmonary emboli identified. 2. No acute intrathoracic findings. 3. 8 mm groundglass opacity within the left upper lobe. This may reflect a mild infectious or inflamm atory process. However, a chest CT in 3 months to exclude the possibility of a small pulmonary lesion is recommended. 4. Emphysema. 5. Indeterminate 3.7 cm multiloculated cystic lesion within the pancreatic body, mildly increased in size since CT of June 18, 2018. If not already evaluated, nonemergent pancreatic protocol MRI is r ecommended. ACT 112: Positive. There are findings on this exam that require communication between the performing entity and the patient following Patient Test Result Information Act [place] Act 112) guidelines. Electronically signed by: Collins Mi M.D. 06/17/2024 2:59 PM
--- NOTE | 2024-06-17 15:36 | XRay Report ---
XR chest 1V portable CLINICAL HISTORY: near syncope COMPARISON STUDY: Chest CT performed earlier today. Chest CT June 18, 2018. FINDINGS: Anterior cervical spine fusion is incidentally noted. Lung volumes are normal. Lungs are cl ear. There is no pneumothorax or pleural effusion. Cardiac size is normal. Mediastinal contours are n ormal. There is no evidence for pulmonary edema. IMPRESSION: No acute cardiopulmonary findings. ACT 112: Negative or not required by law. Electronically signed by: Collins Mi M.D. 06/17/2024 3:34 PM
--- NOTE | 2024-06-17 16:39 | History & Physical Report ---
Date of Service June 17, 2024 Assessment & Plan (1) Acute hypotension: (2) Syncope and collapse: (3) Arthritis: Plan Assessment and plan: Syncope: Head CT negative, EKG unremarkable Chest CTA negative for PE, still hypotensive with SBP's in the 90s on arrival No clear cause for syncope at this time, suspect possible underlying arrhythmia Similar episode 1 year ago while driving, check orthostatic BPs, Check echo, consult cardiology, telemetry monitoring, daily EKGs, continue IV fluids overnight Hx rheumatoid arthritis: Continue Tylenol/Plaquenil Groundglass opacity AMIE versus pulmonary nodule: Current smoker: Noted on CT chest, follow-up CT chest recommended in 3 months Pancreatic body multiloculated cystic lesion: Will need abdominal MRI to further evaluate outpatient, bigger in size since last CAT scan Patient is a DNR/DNIdiscussed extensively with patient DVT prophylaxis: Lovenox A total of 45 minutes was spent on chart checking/reviewing diagnostic data/facilitating plan of care/discussion with consultants History of Present Illness Chief Complaint: Syncope Primary Care Provider: Bonnie Fuller PA-C The patient is a 63-year-old female with a past medical history of rheumatoid arthritis, current smoker1 and half packs a day who presents to the ED on 06/17/2024 with complaints of syncopal episode today. Reports she got up from the couch and the next thing she remembers she was on the floor. Her ex- was present in the house and reports that she was not stumbling prior to falling. The patient reports a similar instance of feeling lightheaded and seeing black spots while she was driving about a year ago. Never had a cardiac workup for that. On exam, the patient denies any complaints. She denies any chest pain/shortness of breath/wheezing/fever/chills/nausea/vomiting/diarrhea. She denies any recent travel/change in medications/vaccinations. On arrival to the patient's home, EMS reports her blood pressure was in the 50s Systolically. This was right after she woke up from her syncopal episode. On arrival to the ED, blood pressures still low in the 90s systolically. Responding well to fluid resuscitation. She reports adequate oral intake and urine output. Her labs are fairly unremarkable, UA unimpressive Chest x-ray negative for acute findings Head CT negative for acute findings Chest CTA shows: 1. No pulmonary emboli identified. 2. No acute intrathoracic findings. 3. 8 mm groundglass opacity within the left upper lobe. This may reflect a mild infectious or inflammatory process. However, a chest CT in 3 months to exclude the possibility of a small pulmonary lesion is recommended. 4. Emphysema. 5. Indeterminate 3.7 cm multiloculated cystic lesion within the pancreatic body, mildly increased in size since CT of June 18, 2018. If not already evaluated, nonemergent pancreatic protocol MRI is recommended. The patient will be admitted for further workup Allergies Allergy/AdvReac Type Severity Reaction Status Date / Time morphine Allergy Severe Itching Verified 01/02/21 21:00 oxycodone [From Percocet] AdvReac Intermediate Nausea/Vomi Verified 01/02/21 21:00 ting adhesive AdvReac Mild Skin Verified 01/02/21 21:00 irritation Home Medications Medication Instructions Recorded Confirmed Type hydroxychloroquine 200 mg tablet 300 mg PO HS 01/02/21 06/17/24 History (Plaquenil) acetaminophen 500 mg tablet 500 mg PO DIRECTED PRN Pain 06/17/24 06/17/24 History Past Med/Surg History Problem List Acute hypotension (Acute) Syncope and collapse (Acute) Medical History Arthritis Surgical History No pertinent past surgical history Family History Other Family history non-contributory Social History Smoking Status: Current every day smoker Tobacco Type: Cigarettes Cigarettes Per Day: 30; Second Hand Exposure: No; Do You Dip or Chew Tobacco: No; Tobacco Cessation Education Requested by Patient: No Hx Alcohol Use: No Hx Substance Use: Yes Last Used Substance: Days (ago) Preferred Language: Congolese Communication Ability: Effective Order Entry Clerk Required: No Beliefs That Will Affect Care: None Current Living Situation: Significant Other Other Information That Helps Us Care for You: No Feels Safe at Home: Yes Safety Concerns: Feels Safe At This Time Assistive Devices: Denture - Upper and Denture - Lower Review of Systems Review of Systems: All systems reviewed & are unremarkable except as noted in HPI & below Physical Exam Constitutional: WD/WN, vitals as above well developed and well nourished; no acute distress Eyes: PERRL, conjunctivae normal, anicteric sclerae Neck: trachea midline, no thyromegaly Respiratory: normal respiratory effort, lungs clear to auscultation Cardiovascular: RRR, no murmur, no edema Gastrointestinal (Abdomen): normal bowel sounds, soft, nontender, no hepat osplenomegaly Percussion/Palpation: abdomen nontender and no guarding Musculoskeletal: no cyanosis or clubbing, extremities motor strength 5/5 Skin: no rashes, warm and dry Neurologic: PERRL, EOMI, accommodation nl, no face palsy, no dysarthria Psychiatric: A+Ox3, euthymic affect Lymphatic: no cervical or axillary lymphadenopathy Results & Data Results & Data Vital Signs (Past 12 Hours) Vital Signs Temp Pulse Pulse Resp BP BP Pulse Ox 06/17/24 15:50 73 16 99/54 L 95 06/17/24 15:30 70 24 94 06/17/24 14:03 73 20 94/59 L 96 06/17/24 14:03 70 16 97 06/17/24 14:03 94/59 L 06/17/24 13:03 75 17 99 06/17/24 12:42 98 06/17/24 12:42 83 20 113/61 98 06/17/24 12:15 73 06/17/24 12:09 36.8 C 77 18 113/61 97 O2 Del Method 06/17/24 15:50 06/17/24 15:30 06/17/24 14:03 06/17/24 14:03 Room Air 06/17/24 14:03 06/17/24 13:03 06/17/24 12:42 Room Air 06/17/24 12:42 Room Air 06/17/24 12:15 06/17/24 12:09 Room Air Diagnostic Findings Laboratory Results WBC 10.25 K/ul (4.8-10.8) 06/17/24 12:38 RBC 4.34 M/uL (4.20-5.40) 06/17/24 12:38 Hgb 13.3 g/dl (12.0-16.0) 06/17/24 12:38 Hct 40.5 % (37.0-47.0) 06/17/24 12:38 MCV 93.3 fL (80.0-100.0) 06/17/24 12:38 MCH 30.6 pg (25.0-34.0) 06/17/24 12:38 MCHC 32.8 g/dL (32.0-36.0) 06/17/24 12:38 RDW Std Deviation 42.4 fL (36.4-46.3) 06/17/24 12:38 RDW Coeff of Kevin 12.3 % (11.5-14.5) 06/17/24 12:38 Plt Count 218 K/uL (130-400) 06/17/24 12:38 MPV 11.8 fL (9.4-12.4) 06/17/24 12:38 Immature Gran % (Auto) 0.5 % 06/17/24 12:38 Neut % (Auto) 78.9 % 06/17/24 12:38 Lymph % (Auto) 13.0 % 06/17/24 12:38 Ray % (Auto) 6.2 % 06/17/24 12:38 Eos % (Auto) 0.8 % 06/17/24 12:38 Baso % (Auto) 0.6 % 06/17/24 12:38 Neut # (Auto) 8.09 K/uL (1.40-6.50) H 06/17/24 12:38 Lymph # (Auto) 1.33 K/uL (1.20-3.40) 06/17/24 12:38 Ray # (Auto) 0.64 K/uL (0.11-0.59) H 06/17/24 12:38 Eos # (Auto) 0.08 K/uL (0.00-0.50) 06/17/24 12:38 Baso # (Auto) 0.06 K/uL (0.00-0.20) 06/17/24 12:38 Immature Gran # (Auto) 0.05 K/uL (0.01-0.20) 06/17/24 12:38 PT 10.5 Seconds (9.0-12.0) 06/17/24 12:38 INR 1.0 (0.9-1.1) 06/17/24 12:38 Sodium 138 mmol/L (136-145) 06/17/24 12:38 Potassium 4.9 mmol/L (3.5-5.1) 06/17/24 12:38 Chloride 103 mmol/L (98-107) 06/17/24 12:38 Carbon Dioxide 32 mmol/L (21-32) 06/17/24 12:38 Anion Gap 3 (3-11) 06/17/24 12:38 BUN 13 mg/dl (6-23) 06/17/24 12:38 Creatinine 0.64 mg/dl (0.6-1.2) 06/17/24 12:38 Est Cr Clr Drug Dosing 73.0 ml/min 06/17/24 12:38 eGFR 100.48 06/17/24 12:38 BUN/Creatinine Ratio 20.3 (10-20) H 06/17/24 12:38 Glucose 111 mg/dl (70-99(Fasting)) H 06/17/24 12:38 Lactate 1.4 mmol/L (0.4-2.0) 06/17/24 14:21 Calcium 9.1 mg/dl (8.6-10.3) 06/17/24 12:38 Magnesium 1.8 mg/dl (1.7-2.4) 06/17/24 12:38 Total Bilirubin 0.4 mg/dl (0.2-1.0) 06/17/24 12:38 AST 14 U/L (13-39) 06/17/24 12:38 ALT 14 U/L (7-52) 06/17/24 12:38 Alkaline Phosphatase 82 U/L (34-104) 06/17/24 12:38 Troponin I High Sens < 2.3 pg/ml (0-14) 06/17/24 12:38 Total Protein 6.7 gm/dl (6.0-8.3) 06/17/24 12:38 Albumin 3.9 gm/dl (3.4-5.0) 06/17/24 12:38 Globulin 2.8 gm/dl (2.5-4.0) 06/17/24 12:38 Albumin/Globulin Ratio 1.4 (0.9-2) 06/17/24 12:38 Lipase 15 U/L (11-82) 06/17/24 12:38 TSH 0.664 uIu/ml (0.300-4.500) 06/17/24 12:38 Urine Color Yellow 06/17/24 14:33 Urine Appearance Clear (Clear) 06/17/24 14:33 Urine pH 7.5 (4.5-7.5) 06/17/24 14:33 Ur Specific [place] 1.013 (1.000-1.030) 06/17/24 14:33 Urine Protein Negative (Negative) 06/17/24 14:33 Urine Glucose (UA) Negative (Negative) 06/17/24 14:33 Urine Ketones Negative (Negative) 06/17/24 14:33 Urine Blood Negative (Negative) 06/17/24 14:33 Urine Nitrite Negative (Negative) 06/17/24 14:33 Urine Bilirubin Negative (Negative) 06/17/24 14:33 Urine Urobilinogen Negative (Negative) 06/17/24 14:33 Ur Leukocyte Esterase Trace (Negative) H 06/17/24 14:33 Urine WBC (Auto) 0-5 /hpf (0-5) 06/17/24 14:33 Urine RBC (Auto) 0-2 /hpf (0-2) 06/17/24 14:33 U Hyaline Cast (Auto) 0-2 /lpf (0-2) 06/17/24 14:33 U Epithel Cells (Auto) 3-5 /hpf (0-2) H 06/17/24 14:33 Urine Bacteria (Auto) 3+ (None Seen) H 06/17/24 14:33 Impressions Chest X-Ray 06/17/24 14:14 XR chest 1V portable CLINICAL HISTORY: near syncope COMPARISON STUDY: Chest CT performed earlier today. Chest CT June 18, 2018. FINDINGS: Anterior cervical spine fusion is incidentally noted. Lung volumes are normal. Lungs are clear. There is no pneumothorax or pleural effusion. Cardiac size is normal. Mediastinal contours are normal. There is no evidence for pulmonary edema. IMPRESSION: No acute cardiopulmonary findings. ACT 112: Negative or not required by law. Electronically signed by: Collins Mi M.D. 06/17/2024 3:[address] 06/17/24 14:14 CT OF THE HEAD WITHOUT CONTRAST CLINICAL HISTORY: syncopal episode COMPARISON STUDY: No previous studies for comparison. TECHNIQUE: Helical axial images of the head were obtained without IV contrast. Automated exposure control was utilized for the study. A dose lowering technique was utilized adhering to the principles of ALARA. FINDINGS: No acute intracranial hemorrhage, midline shift or mass effect is present. Scattered subcortical white matter hypodense foci are present. The ventricular system is unremarkable. The basal cisterns are patent. No extra-axia l collections are present. There are no findings to suggest acute dural sinus thrombosis or acute territorial infarct. No significant calvarial abnormalities are present. Visualized portions of the sinuses and mastoid air cells are clear. IMPRESSION: 1. No acute intracranial findings. 2. No calvarial fractures. 3. Scattered subcortical white matter hypodense foci. Although nonspecific, these statistically reflect small vessel disease. ACT 112: Negative or not required by law. Electronically signed by: Collins Mi M.D. 06/17/2024 2:47 PM Chest CTA 06/17/24 14:15 CT ANGIOGRAPHY OF THE CHEST, PULMONARY EMBOLUS PROTOCOL CLINICAL HISTORY: Syncope; hypotension. Evaluate for pulmonary embolus. COMPARISON STUDY: Chest CT June 18, 2018. TECHNIQUE: Following IV administration of 115 mL of Optiray, helical axial images of the chest were obtained utilizing the pulmonary embolus protocol. Maximal intensity projections and sagittal and coronal reformats were viewed on an independent 3D workstation. IV contrast was administered without complication. Automated exposure control was utilized for the study. A dose lowering technique was utilized adhering to the principles of ALARA. CT DOSE: 865.76 mGy.cm FINDINGS: No pulmonary emboli are identified. There is no thoracic aortic dissection. Size of the heart is normal. There is no pericardial effusion. No enlarged axillary, mediastinal or hilar lymph nodes are present. There is no pneumothorax or pleural effusion. Mild emphysema is present. An 8 mm ground glass opacity within the left upper lobe on image 115 of [address] of June 10, 2018. There are no acute fractures within the bony thorax. A multiloculated cystic lesion within the pancreatic body is partially imaged on this exam. This contains central calcification measures 3.7 cm in maximal dimension. This has mildly increased in size since CT of June 18, 2018. IMPRESSION: 1. No pulmonary emboli identified. 2. No acute intrathoracic findings. 3. 8 mm groundglass opacity within the left upper lobe. This may reflect a mild infectious or inflammatory process. However, a chest CT in 3 months to exclude the possibility of a small pulmonary lesion is recommended. 4. Emphysema. 5. Indeterminate 3.7 cm multiloculated cystic lesion within the pancreatic body, mildly increased in size since CT of June 18, 2018. If not already evaluated, nonemergent pancreatic protocol MRI is recommended. ACT 112: Positive. There are findings on this exam that require communication between the performing entity and the patient following Patient Test Result Information Act [place] Act 112) guidelines. Electronically signed by: Collins Mi M.D. 06/17/2024 2:59 PM Supervising Physician Co-Signing Physician Notes Attending addendum: The patient was seen and examined in the emergency room She was admitted with syncopal episode without any loss of consciousness She has had this episode about 1 year ago Denies any warning symptoms prior to this syncope She got up from her couch and She noticed to be on the floor Denies any significant symptoms during examination On examination Lying in bed without any acute distress Hemodynamically stable Chestclear to auscultate bilaterally Abdomenbenign HeartS1-S2, regular no murmur appreciated Extremitiesno edema CNSalert, awake and oriented x 3. No focal sensory or motor deficit appreciated Her admission labs, EKG and imaging studies reviewed Unremarkable labs, EKG and CT of the chest Syncopal episode rule out any cardiac causes Noted to have hypotension and will get postural orthostatic checked Agree with assessment plan as outlined above by BRYANT Mayo and take the full responsibility of the care Dr Gorge sy
[2024-06-17] MEDS: NICOTINE 14 MG/24 HR PATCH TD SCH (18:04)
[2024-06-17] MEDS: SODIUM CHLORIDE 0.9% 500 ML IV SCH (18:05)
[2024-06-17 18:36] LABS: Adenovirus PCR Not Detected (NotDetected); Bordetella parapertussis PCR Not Detected (NotDetected); Bordetella pertussis PCR Not Detected (NotDetected); Chlamydia pneumoniae PCR Not Detected (NotDetected); Coronavirus 229E PCR Not Detected (NotDetected); Coronavirus CoV-2 (COVID19)PCR Not Detected (NotDetected); Coronavirus HKU1 PCR Not Detected (NotDetected); Coronavirus NL63 PCR Not Detected (NotDetected); Coronavirus OC43PCR Not Detected (NotDetected); Human Metapneumovirus PCR Not Detected (NotDetected); Influenza A PCR Not Detected (NotDetected); Influenza B PCR Not Detected (NotDetected); Mycoplasma pneumoniae PCR Not Detected (NotDetected); Parainfluenza Virus 1 PCR Not Detected (NotDetected); Parainfluenza Virus 2 PCR Not Detected (NotDetected); Parainfluenza Virus 3 PCR Not Detected (NotDetected); Parainfluenza Virus 4 PCR Not Detected (NotDetected); Respiratory Syncytial VirusPCR Not Detected (NotDetected); Rhinovirus/Enterovirus PCR Not Detected (NotDetected)
[2024-06-17 19:18] VITALS: RESP 18
[2024-06-18 06:43] LABS: Basophils # (auto) 0.06 K/uL (0.00-0.20); Basophils % (auto) 0.5 %; Eosinophils # (auto) 0.22 K/uL (0.00-0.50); Eosinophils % (auto) 1.9 %; Hematocrit (blood only) 39.5 % (37.0-47.0); Hemoglobin 13.2 g/dl (12.0-16.0); Immature Granulocytes # (auto) 0.04 K/uL (0.01-0.20); Immature Granulocytes % (auto) 0.3 %; Lymphocytes # (auto) 2.51 K/uL (1.20-3.40); Lymphocytes % (auto) 21.8 %; Mean Corpuscular Hemoglobin 30.3 pg (25.0-34.0); Mean Corpuscular Hgb Conc 33.4 g/dL (32.0-36.0); Mean Corpuscular Volume 90.6 fL (80.0-100.0); Mean Platelet Volume 11.7 fL (9.4-12.4); Monocytes # (auto) 0.81 K/uL (0.11-0.59); Neutrophils # (auto) 7.87 K/uL (1.40-6.50); Neutrophils % (auto) 68.5 %; Platelet Count 215 K/uL (130-400); RDW Coefficient of Variation 12.2 % (11.5-14.5); RDW Standard Deviation 40.8 fL (36.4-46.3); Red Blood Count 4.36 M/uL (4.20-5.40); White Blood Count 11.51 K/ul (4.8-10.8)
[2024-06-18 07:15] LABS: Albumin Globulin Ratio 1.5 (0.9-2); Albumin Level 3.8 gm/dl (3.4-5.0); BUN Creatinine Ratio 19.6 (10-20); Bilirubin,Total 0.4 mg/dl (0.2-1.0); Calcium 9.1 mg/dl (8.6-10.3); Creatinine Clr Calc Pharmacy 87.4 ml/min; Globulin 2.5 gm/dl (2.5-4.0); Magnesium 1.8 mg/dl (1.7-2.4); Total Protein 6.3 gm/dl (6.0-8.3)
--- NOTE | 2024-06-18 08:53 | Cardiology Consultation ---
Date of Consultation June 18, 2024 Assessment & Plan (1) Syncope and collapse: (2) Orthostatic hypotension: (3) PVC (premature ventricular contraction): Plan Patient evaluated for syncope at home. Likely orthostatic hypotension based on findings/symptoms. She was hypotensive when EMS arrived and remained hypotensive in ER, improving with IV fluids. Reproducible orthostatic vital signs this morning but she was not symptomatic. Echo ordered and pending. HS troponin negative. She does have intermittent PVC's on telemetry. No symptoms. Supplement magnesium with level at 1.8. Goal is > 2.0. 1 gm IV to be given now and then start mag ox. If echo is unremarkable, and no recurrent symptoms with ambulation, likely to be discharged later today. Would also recommend outpatient ZIO monitor to evaluate for arrhythmias and frequency of PVC's. Hydration encouraged. Possible use of compression stockings also encouraged. Small frequent meals recommended. If she continues to have symptoms of orthostasis, could consider low dose midodrine. However after IV fluids, her BP has improved and she is symptom free. She will need for chest CT for pulm lesion/nodule in 3 months and f/u imaging of her pancreas. Smoking cessation encouraged. Case discussed with Dr. Bose I spent a total of 60 minutes on the date of service in preparation, delivery, and documentation of the care provided to this patient, excluding any time spent in the performance of separately billed services. Mone Bear PA-C Department of Cardiology, [facility] This chart was completed in part utilizing Speech Voice Recognition Software. Grammatical errors, random word insertions, pronoun errors, and incomplete sentences are an occasional consequence of this system due to software limitations, ambient noise, and hardware issues. Any formal questions or concerns about the content, text, or information contained within the body of this dictation should be directly addressed to the provider for clarification. Supervising Physician Co-Signing Physician Notes Cardiology attestation: Case reviewed with the advanced practitioner. Agree with assessment and plan as outlined. Unfortunately patient was discharged before I had the opportunity to examine her in person. Echocardiogram performed today 06/10/2024 revealed normal left ventricular wall motion, normal LVEF in the range of 55 to 60%, grade 1 diastolic dysfunction, no significant valvular heart disease. EKG with occasional isolated monomorphic premature ventricular contractions. Presentation suggestive of orthostatic hypotension. Recommendations as noted above. Josesito Bose, DO History of Present Illness Reason for Consultation: Syncope; Hypotension Requesting Physician: Jorge Hospitalist Attending Physician: Dr. Bose History of Present Illness Patient is a 63 year old female who presented to [facility] after a syncopal episode at home. Patient reports a long history of hypotension, typically in the 90's but no significant symptoms. Yesterday late morning, patient stood quickly from her seated position sitting on the cough to walk to the kitchen. Within a few seconds she felt lightheaded and then awakened on the floor, having likely lost consciousness. No bowel or bladder incontinence. She reports LOC was likely only seconds as her family came to see what happened when they head her fall. No significant injury reported. She only had 1 cup of coffee and nothing else to eat/drink prior to event yesterday. EMS was summoned to her house. Found to be significantly hypotensive with systolic BP in the 50's reported by EMS. Upon arriving to the ER, BP improved to the 90's with IV fluids. HS troponin negative on admission. Other labs without acute findings. Magnesium level was low normal at 1.8. EKG on arrival demonstrated NSR without ischemic changes. Repeat EKG this morning with intermittent PVC's. Chest CT was negative for PE but did demonstrated small pulm nodule/lesion - repeat CT scan recommended in 3 months. She was also found to have pancreatic cyst/lesion and MRI recommended. She reports one other episode of dizziness about 1.5 years ago, but no loss of consciousness. This resolved quickly. She denies history of cardiovascular problems/issues. At time of consult, patient resting in bed feeling well. no recurrent dizziness or lightheadedness. no chest pain or dyspnea. Rare palpitations reported. Since admission she had mild orthostatic hypotension on evaluation yesterday and this morning. She had no symptos with episode this morning with supine BP around 119/73 and dropping to 101/68 standing. History includes: 1. Rheumatoid Arthritis 2. Tobacco abuse with COPD/emphysema Allergies Allergy/AdvReac Type Severity Reaction Status Date / Time morphine Allergy Severe Itching Verified 01/02/21 21:00 oxycodone [From Percocet] AdvReac Intermediate Nausea/Vomi Verified 01/02/21 21:00 ting adhesive AdvReac Mild Skin Verified 01/02/21 21:00 irritation Home Medications Medication Instructions Recorded Confirmed Type hydroxychloroquine 200 mg tablet 300 mg PO HS 01/02/21 06/17/24 History (Plaquenil) acetaminophen 500 mg tablet 500 mg PO DIRECTED PRN Pain 06/17/24 06/17/24 History magnesium oxide 400 mg (241.3 mg 400 mg PO QAM 30 days #30 tabs 06/18/24 Rx magnesium) tablet Patient History Medical History (Updated 06/18/24 @ 12:00 by Mone Bear PA-C) Arthritis Surgical History No pertinent past surgical history Family History Other Family history non-contributory Social History Smoking Status: Current every day smoker Tobacco Type: Cigarettes Cigarettes Per Day: 30; Second Hand Exposure: No; Do You Dip or Chew Tobacco: No; Hx Alcohol Use: No Hx Substance Use: Yes Last Used Substance: Days (ago) Preferred Language: Nepali Communication Ability: Effective Geology Technician Required: No Beliefs That Will Affect Care: None Current Living Situation: Significant Other Feels Safe at Home: Yes Assistive Devices: None Review of Systems Review of Systems: All systems reviewed & are unremarkable except as noted in HPI & below Physical Exam Constitutional: WD/WN, vitals as above + thin; no acute distress Neck: trachea midline, no thyromegaly Respiratory: normal respiratory effort; no labored breathing Auscultation: + diminished lung sounds and + wheezes Cardiovascular: Rate/Rhythm: regular rate and regular rhythm Heart Sounds: normal S1 and normal S2; no murmur Vessels: no JVD Extremities: no edema Gastrointestinal (Abdomen): normal bowel sounds, soft, nontender, no hepatosplenomegaly Musculoskeletal: no cyanosis or clubbing, extremities motor strength 5/5 Neurologic: PERRL, EOMI, accommodation nl, no face palsy, no dysarthria Psychiatric: A+Ox3, euthymic affect Results & Data Vital Signs (Past 12 Hours) Vital Signs Temp Pulse Pulse Resp BP Pulse Ox O2 Del Method 06/18/24 07:51 37.2 C 92 Room Air 10/28/24 07:22 81 06/18/24 03:04 36.6 C 82 18 133/75 96 Room Air 06/17/24 22:31 36.6 C 69 18 109/65 98 Room Air 06/17/24 22:00 69 Laboratory Results Cardiac Enzymes 06/17/24 06/18/24 Range/Units 12:38 05:29 AST 14 13 (13-39) U/L Troponin I High Sens < 2.3 (0-14) pg/ml Coagulation 06/17/24 Range/Units 12:38 PT 10.5 (9.0-12.0) Seconds CBC 06/17/24 06/18/24 Range/Units 12:38 05:29 WBC 10.25 11.51 H (4.8-10.8) K/ul RBC 4.34 4.36 (4.20-5.40) M/uL Hgb 13.3 13.2 (12.0-16.0) g/dl Hct 40.5 39.5 (37.0-47.0) % Plt Count 218 215 (130-400) K/uL Neut # (Auto) 8.09 H 7.87 H (1.40-6.50) K/uL Lymph # (Auto) 1.33 2.51 (1.20-3.40) K/uL [place] # (Auto) 0.64 H 0.81 H (0.11-0.59) K/uL Eos # (Auto) 0.08 0.22 (0.00-0.50) K/uL Baso # (Auto) 0.06 0.06 (0.00-0.20) K/uL Comprehensive Metabolic Panel 06/17/24 06/18/24 Range/Units 12:38 05:29 Sodium 138 141 (136-145) mmol/L Potassium 4.9 4.0 (3.5-5.1) mmol/L Chloride 103 108 H (98-107) mmol/L Carbon Dioxide 32 27 (21-32) mmol/L BUN 13 10 (6-23) mg/dl Creatinine 0.64 0.51 L (0.6-1.2) mg/dl Glucose 111 H 82 (70-99(Fasting)) mg/dl Calcium 9.1 9.1 (8.6-10.3) mg/dl AST 14 13 (13-39) U/L ALT 14 11 (7-52) U/L Alkaline Phosphatase 82 79 (34-104) U/L Total Protein 6.7 6.3 (6.0-8.3) gm/dl Albumin 3.9 3.8 (3.4-5.0) gm/dl Intake and Output 06/17/24 06/18/24 06/18/24 22:59 06:59 14:59 Intake Total 100 / 600 500 / 600 Balance 100 / 600 500 / 600 Intake: IV 500 / 500 Sodium Chloride 0.9% 500 ml @ 500 / 500 80 mls/hr IV .Q6H15M JUNI Rx#: [id number] Oral 100 / 100 Other: Other Intake Source npo # Unmeasured Voids 2 4 Weight 48 kg 47.8 kg Weight Measurement Method Chair Scale Diagnostic Findings Telemetry with occ PVC's and short runs of ventricular bigeminy EKG reviewed from 06/18/24: NSR with PVCs Compared with prior EKG, PVC's are now present EKG reviewed from 06/17/24 at 12:35: NSR, possible old anterior infarct No acute ischemic changes. No significant change from previous Chest X-Ray 06/17/24 14:14 XR chest 1V portable CLINICAL HISTORY: near syncope COMPARISON STUDY: Chest CT performed earlier today. Chest CT June 18, 2018. FINDINGS: Anterior cervical spine fusion is incidentally noted. Lung volumes are normal. Lungs are clear. There is no pneumothorax or pleural effusion. Cardiac size is normal. Mediastinal contours are normal. There is no evidence for pulmonary edema. IMPRESSION: No acute cardiopulmonary findings. ACT 112: Negative or not required by law. Electronically signed by: Collins Mi M.D. 06/17/2024 3:[address] 06/17/24 14:14 CT OF THE HEAD WITHOUT CONTRAST CLINICAL HISTORY: syncopal episode COMPARISON STUDY: No previous studies for comparison. TECHNIQUE: Helical axial images of the head were obtained without IV contrast. Automated exposure control was utilized for the study. A dose lowering technique was utilized adhering to the principles of ALARA. FINDINGS: No acute intracranial hemorrhage, midline shift or mass effect is present. Scattered subcortical white matter hypodense foci are present. The ventricular system is unremarkable. The basal cisterns are patent. No extra- axial collections are present. There are no findings to suggest acute dural sinus thrombosis or acute territorial infarct. No significant calvarial abnormalities are present. Visualized portions of the sinuses and mastoid air cells are clear. IMPRESSION: 1. No acute intracranial findings. 2. No calvarial fractures. 3. Scattered subcortical white matter hypodense foci. Although nonspecific, these statistically reflect small vessel disease. Electronically signed by: Collins Mi M.D. 06/17/2024 2:47 PM Chest CTA 06/17/24 14:15 T ANGIOGRAPHY OF THE CHEST, PULMONARY EMBOLUS PROTOCOL CLINICAL HISTORY: Syncope; hypotension. Evaluate for pulmonary embolus. COMPARISON STUDY: Chest CT June 18, 2018. TECHNIQUE: Following IV administration of 115 mL of Optiray, helical axial images of the chest were obtained utilizing the pulmonary embolus protocol. Maximal intensity projections and sagittal and coronal reformats were viewed on an independent 3D workstation. IV contrast was administered without complication. Automated exposure control was utilized for the study. A dose lowering technique was utilized adhering to the principles of ALARA. CT DOSE: 865.76 mGy.cm FINDINGS: No pulmonary emboli are identified. There is no thoracic aortic dissection. Size of the heart is normal. There is no pericardial effusion. No enlarged axillary, mediastinal or hilar lymph nodes are present. There is no pneumothorax or pleural effusion. Mild emphysema is present. An 8 mm ground glass opacity within the left upper lobe on image 115 of [address] of June 10, 2018. There are no acute fractures within the bony thorax. A multiloculated cystic lesion within the pancreatic body is partially imaged on this exam. This contains central calcification measures 3.7 cm in maximal dimension. This has mildly increased in size since CT of June 18, 2018. IMPRESSION: 1. No pulmonary emboli identified. 2. No acute intrathoracic findings. 3. 8 mm groundglass opacity within the left upper lobe. This may reflect a mild infectious or inflammatory process. However, a chest CT in 3 months to exclude the possibility of a small pulmonary lesion is recommended. 4. Emphysema. 5. Indeterminate 3.7 cm multiloculated cystic lesion within the pancreatic body, mildly increased in size since CT of June 18, 2018. If not already evaluated, nonemergent pancreatic protocol MRI is recommended. ACT 112: Positive. There are findings on this exam that require communication between the performing entity and the patient following Patient Test Result Information Act ([place] Act 112) guidelines. Electronically signed by: Collins Mi M.D. 06/17/2024 2:59 PM Prior outside data reviewed: DSE dated 05/2022: Interpretation Summary The examination is adequate to evaluate the referral indication. The stress echo is negative for inducible ischemia. The left ventricular ejection fraction increases normally with stress. Medications Administered Current Inpatient Medications Enoxaparin Sodium (Enoxaparin Inj 40 Mg/0.4 Ml Syr) 40 mg SQ QAM [facility] Stop: 07/18/24 08:59 Last Admin: 06/18/24 09:02 Dose: Not Given Magnesium Oxide (Magnesium Oxide 400 Mg Tab) 400 mg PO QAM [facility] Stop: 07/19/24 08:59 Miscellaneous (Remove Nicoderm Patch) 1 each N/A DAILY@0859 [facility] Stop: 07/18/24 08:58 Last Admin: 06/18/24 09:02 Dose: 1 each Nicotine (Nicotine 14 Mg/24 Hr Patch) 1 [facility] Stop: 07/17/24 17:05 Last Admin: 06/18/24 09:02 Dose: Not Given
[2024-06-18] MEDS: ENOXAPARIN INJ 40 MG/0.4 ML SYR SQ SCH (09:02)
[2024-06-18 09:47] LABS: Appearance Urine Clear (Clear); Bilirubin Urine Negative (Negative); Blood Urine Negative (Negative); Color Urine Yellow; Glucose Urine UA Negative (Negative); Ketones Urine Negative (Negative); Leukocyte Esterase Urine Negative (Negative); Nitrite Urine Negative (Negative); Protein Urine Negative (Negative); Urobilinogen Urine Negative (Negative); pH Urine 7.5 (4.5-7.5)
[2024-06-18] MEDS: MAGNESIUM SULFATE / D5W 1 GM/100 ML BAG IV ONE (10:03)
[2024-06-18 12:08] VITALS: TEMP 97.7; O2SAT 95
--- NOTE | 2024-06-18 12:41 | Electrocardiogram Report ---
Test Reason : Blood Pressure : */* mmHG Vent. Rate : 75 BPM Atrial Rate : 75 BPM P-R Int : 152 ms QRS Dur : 72 ms QT Int : 408 ms P-R-T Axes : 75 59 62 degrees QTcB Int : 455 ms Normal sinus rhythm When compared with ECG of 04-Apr-2019 17:21, Sinus rhythm has replaced Atrial fibrillation Nonspecific T wave abnormality no longer evident in Anterior leads Confirmed by Terry Norris ([id number]) on 06/18/2024 12:41:19 PM Referred By: Confirmed By: Terry Norris
--- NOTE | 2024-06-18 12:50 | Electrocardiogram Report ---
Test Reason : Blood Pressure : */* mmHG Vent. Rate : 92 BPM Atrial Rate : 92 BPM P-R Int : 154 ms QRS Dur : 68 ms QT Int : 368 ms P-R-T Axes : 72 56 58 degrees QTcB Int : 455 ms Sinus rhythm with frequent Premature ventricular complexes Otherwise normal ECG When compared with ECG of 17-Jun-2024 12:35, (unconfirmed) Premature ventricular complexes are now Present Confirmed by Terry Norris ([id number]) on 06/18/2024 12:50:35 PM Referred By: REFERRED SELF Confirmed By: Terry Norris
--- NOTE | 2024-06-18 14:51 | Discharge Summary ---
Discharge Summary Date of Service June 18, 2024 Principal Dx & Hospital Course #1 = Principal Diagnosis (1) Acute hypotension: (2) Syncope and collapse: (3) Arthritis: Plan Ms. Stevens is a 63 yo woman with history of RA and tobacco use who reports intermittent presyncope iso chronic hypotension, admitted for syncope workup. Patient stood up abruptly with subsequent collapse shortly there after. Patient hypotensive and responded to IVF with sbp from 50s to 90s. Workup unremarkable. Orthostats mildly positive. Asymptomatic on discharge. Cardiology evaluated patient and recommended hydration and possibly compression stockings. Patient with PVCs on tele. Magnesium supplementation started. Plan for OP zio patch. Discussed need for follow up imaging for pancreatic and lung lesion. #Syncope #Orthostatic hypotension Head CT negative, EKG unremarkable Chest CTA negative for PE, still hypotensive with SBP's in the 90s on arrival No clear cause for syncope at this time, suspect possible underlying arrhythmia +othostats, improved s/p fluids, encourage hydration, consider compression stockings #PVCs echo stable Plan for op zio patch magnesium oxide daily #Rheumatoid arthritis: Continue Tylenol/Plaquenil #Ground glass opacity AMIE versus pulmonary nodule: #Current smoker: Follow-up CT chest recommended in 3 months Pancreatic body multiloculated cystic lesion: Will need abdominal MRI to further evaluate outpatient, bigger in size since last CAT scan Patient is a DNR/DNIdiscussed extensively with patient DVT prophylaxis: Lovenox A total of 45 minutes was spent on chart checking/reviewing diagnostic data/facilitating plan of care/discussion with consultants Notes For Next Care Provider GGO AMIE versus pulmonary nodule: Repeat CT in 3 months Pancreatic Lesion: Op pancreatic MRI recommended ZIO Patch as OP Medication Changes From Visit Magnesium oxide 400mg daily Admission HPI Per Admitting Provider The patient is a 63-year-old female with a past medical history of rheumatoid arthritis, current smoker1 and half packs a day who presents to the ED on 06/17/2024 with complaints of syncopal episode today. Reports she got up from the couch and the next thing she remembers she was on the floor. Her ex- was present in the house and reports that she was not stumbling prior to falling. The patient reports a similar instance of feeling lightheaded and seeing black spots while she was driving about a year ago. Never had a cardiac workup for that. On exam, the patient denies any complaints. She denies any chest pain/shortness of breath/wheezing/fever/chills/nausea/vomiting/diarrhea. She denies any recent travel/change in medications/vaccinations. On arrival to the patient's home, EMS reports her blood pressure was in the 50s Systolically. This was right after she woke up from her syncopal episode. On arrival to the ED, blood pressures still low in the 90s systolically. Responding well to fluid resuscitation. She reports adequate oral intake and urine output. Her labs are fairly unremarkable, UA unimpressive Chest x-ray negative for acute findings Head CT negative for acute findings Chest CTA shows: 1. No pulmonary emboli identified. 2. No acute intrathoracic findings. 3. 8 mm groundglass opacity within the left upper lobe. This may reflect a mild infectious or inflammatory process. However, a chest CT in 3 months to exclude the possibility of a small pulmonary lesion is recommended. 4. Emphysema. 5. Indeterminate 3.7 cm multiloculated cystic lesion within the pancreatic body, mildly increased in size since CT of June 18, 2018. If not already evaluated, nonemergent pancreatic protocol MRI is recommended. The patient will be admitted for further workup Admission Exam Per Admitting Provider Constitutional: WD/WN, vitals as above well developed and well nourished; no acute distress Eyes: PERRL, conjunctivae normal, anicteric sclerae Neck: trachea midline, no thyromegaly Respiratory: normal respiratory effort, lungs clear to auscultation Cardiovascular: RRR, no murmur, no edema Gastrointestinal (Abdomen): normal bowel sounds, soft, nontender, no hepatosplenomegaly Percussion/Palpation: abdomen nontender and no guarding Musculoskeletal: no cyanosis or clubbing, extremities motor strength 5/5 Skin: no rashes, warm and dry Neurologic: PERRL, EOMI, accommodation nl, no face palsy, no dysarthria Psychiatric: A+Ox3, euthymic affect Lymphatic: no cervical or axillary lymphadenopathy Discharge Exam Constitutional WD/WN, vitals as above Respiratory normal respiratory effort, lungs clear to auscultation Cardiovascular RRR, no murmur, no edema Gastrointestinal (Abdomen) normal bowel sounds, soft, nontender, no hepatosplenomegaly Neurologic PERRL, EOMI, accommodation nl, no face palsy, no dysarthria Updated Medication List Medication Instructions Recorded Confirmed Type hydroxychloroquine 200 mg tablet 300 mg PO HS 01/02/21 06/17/24 History (Plaquenil) acetaminophen 500 mg tablet 500 mg PO DIRECTED PRN Pain 06/17/24 06/17/24 History magnesium oxide 400 mg (241.3 mg 400 mg PO QAM 30 days #30 tabs 06/18/24 Rx magnesium) tablet Hospital Stay Data Consultations 06/17/24 15:44 ED Decision to Admit Stat 06/17/24 17:06 Consult Cardiology Routine Diagnostic Imagining Performed 06/17/24 14:14 CT head/brain wo con Stat 06/17/24 14:15 CT for pulmonary embolism PE [CT angio chest PE protocol] Stat Pending Results Patient Have Any Pending Studies at Discharge: No Discharge Instructions Given to Patient (Per Discharging Provider) You were admitted for syncope, or fainting spell. Your blood work looks stable and no signs of infection. Please follow up with primary care provider and discuss outpatient ZIO monitor to evaluate for arrhythmias and frequency of PVC's. Continue good hydration. If persistent symptoms, consider use of compression stockings also encouraged. Small frequent meals recommended. Please start magnesium oxide 400mg daily to keep levels up and perhaps aid with PVCs/palpitations You will need for chest CT for pulm lesion/nodule in 3 months and f/u imaging of pancreas. Please consider tobacco cessation Total Time Total Time Spent Total Time Spent (In Minutes): 45
[2024-06-18 15:53] VITALS: BP 99/54; PULSE 87
[2024-06-19] MEDS ORDERED: MAGNESIUM OXIDE 400 MG TAB PO SCH (09:00)
== END 2024-06-18 16:37 | disposition home or self-care (01) | DRG 312 ==
LOC: ED 12:02 → 2S 15:56 → SUATTDRO 15:56 → INTOOBSV 15:56 → 2S 16:50